=== PATIENT | male | born 1960 | race Caucasian/White ===

== ENCOUNTER → 2019-08-25 | Outpatient (CLI) | payer OTHER | LOC: M.MRI 08-17 11:08 | PROVIDERS: ATTEND Internal Medicine | DX: M47.22 Other spondylosis with radiculopathy, cervical region (principal); M48.02 Spinal stenosis, cervical region; M51.24 Other intervertebral disc displacement, thoracic region; M48.04 Spinal stenosis, thoracic region ==

== ENCOUNTER → 2019-10-10 | Outpatient (CLI) | payer OTHER ==
--- NOTE | 2019-10-10 16:31 | EXE ---
[place] [address] STRESS ECHOCARDIOGRAM Name: MCKENZIE RIBEIRO Room: [facility]#: [id number] Admission: 10/10/19 Attend Phys: Ric Galloway MD Discharge: Date of : 64 Date of Service: 10/10/19 1631 Report #: [id number] THIS REPORT FOR: cc: Naveen Luna MD, Dean L. MD Holkins, John M. MD [facility] ~ APPROVED REPORT Study performed: 10/10/2019 15:01:11 Exam: Stress Echocardiogram Indication: Chest pain , Dyspnea Patient Location: Out-Patient Stress Nurse: Nikki Cowan RN Supervising Physician: Tomi Bailey MD Ht: 5 ft 7 in HR: 59 bpm BP: 111/66 mmHg Medical History Cardiac Risk Factors: Age, , Hyperlipidemia, HTN, Tobacco History (Current/Recent) Procedure The patient underwent an Exercise Stress Test using the Uriel Protocol. Blood pressure, heart rate, and EKG were monitored. An Echocardiogram was performed by natural resource technician in four stages in quad fashion. At peak stress, four selected images were obtained and placed side by side with resting images for comparison. Stress Test Details Stress Test: Exercise stress testing was performed using a Uriel protocol. HR Resting HR: 59 bpm Max Heart Rate (APMHR): 163 bpm Max HR Achieved: 158 bpm Target HR (85% APMHR): 138 bpm % of APMHR: 96 Recovery HR: 94 bpm HR response to stress: Normal HR response to stress BP Resting BP: 111/66 mmHg Max BP: 195/66 mmHg Recovery BP: 134/69 [place] [address] STRESS ECHOCARDIOGRAM Name: MCKENZIE RIBEIRO Kimi Room: [facility]#: [id number] Admission: 10/10/19 Attend Phys: Ric Galloway MD Discharge: Date of : 64 Date of Service: 10/10/19 1631 Report #: [id number] BP response to stress: Normal blood pressure response to stress. ECG Resting ECG: sinus rhythm, minor IVCD right type Stress ECG: no ischemic st-t changes Arrhythmia: rare isolated pvc's Clinical Reason for Termination: Completed protocol Exercise duration: 10 min 28 sec Highest Stage Achieved: Stage 4: 4.2 mph at 16% grade. Exercise capacity: 12.54 METs Pre-Stress Echo The resting Echocardiogram showed normal left ventricular contractility with an estimated Ejection Fraction of about 55-60%. Normal wall motion in all segments on baseline images. Post-Stress Echo The stress Echocardiogram showed normal left ventricular contractility with an estimated Ejection Fraction of about >70%. Normal augmentation of wall motion in all segments on post stress images. Conclusion Clinical Response: Non-ischemic Exercise Capacity: Average Stress ECG Response: Non-ischemic Stress Echo Images: Non-ischemic Other Information Study Quality: Good <ELECTRONICALLY SIGNED> By: Tomi Bailey MD, [facility] 10/10/191630 30 30 Tomi Bailey MD, FAC /INF
== END ==
LOC: M.CRD 14:31
PROVIDERS: ATTEND Internal Medicine Cardiovascular Disease
DX: R07.89 Other chest pain (principal)

== ENCOUNTER → 2020-11-27 | Outpatient (CLI) | payer OTHER ==
[2020-11-27 15:00] LABS: ABSOLUTE EOSINOPHILS 0.1 thou/uL (0.0-0.7); ABSOLUTE LYMPHOCYTES 1.5 thou/uL (0.8-5.3); ABSOLUTE MONOCYTES 0.4 thou/uL (0.0-1.2); ABSOLUTE NEUTROPHILS 3.6 thou/uL (1.6-8.1); BASOPHILS 0.5 %; EOSINOPHILS 1.6 %; HEMATOCRIT 42.7 % (42.0-52.0); HEMOGLOBIN 14.7 gm/dL (14.0-18.0); MCH 30.1 pg (26.0-34.0); MCHC 34.3 g/dL (28.0-37.0); MCV 87.8 fL (80.0-100.0); MONOCYTES 7.3 %; MPV 7.5 fl. (7.2-11.1); NUCLEATED RBCS 0 /100WBC; PLATELET COUNT* 210 thou/uL (150-400); POLYS 63.6 %; RBC 4.86 mil/uL (4.50-6.00); RDW-CV 13.6 % (10.5-14.5); WBC 5.7 thou/uL (4.0-11.0)
[2020-11-27 15:19] LABS: ALBUMIN 3.9 g/dL (3.4-5.0); CALCIUM 8.3 mg/dL (8.5-10.1); CREATININE 1.2 mg/dL (0.6-1.3); POTASSIUM 4.3 mmol/L (3.5-5.1); TOTAL BILIRUBIN 0.4 mg/dL (<0.1-1.0); TOTAL PROTEIN 7.9 g/dL (6.4-8.2)
== END ==
LOC: M.LAB 14:41
PROVIDERS: ATTEND Internal Medicine
DX: R06.02 Shortness of breath (principal)

== ENCOUNTER → 2020-11-28 | Outpatient (CLI) | payer OTHER | LOC: M.LAB 08:17 | PROVIDERS: ATTEND Internal Medicine | DX: K57.30 Diverticulosis of large intestine without perforation or abscess without bleeding (principal); I70.0 Atherosclerosis of aorta ==